=== PATIENT | female | born 1955 | race Caucasian/White ===

== ENCOUNTER 2024-03-10 07:00 | Day surgery (SDC) | payer MEDICARE, OTHER ==
[~2024-03-10 07:00] MED LIST: Lactated Ringers 1,000 ML IV SCH; Morphine 8 MG, EPINEPHrine 0.3 MG, Cefuroxime 750 MG, Ketorolac 30 MG, Sodium Chloride ... PRN; Sodium Chloride 0.9% 10 ML Syringe FLUSH PRN; Sodium Chloride 0.9% 10 ML Syringe FLUSH SCH
[2024-03-10] MEDS: Lactated Ringers 1,000 ML IV SCH (07:10)
[2024-03-10] MEDS ORDERED: Propofol 200 MG/20 ML SDV ONE ×4 (07:56)
[2024-03-10] MEDS ORDERED: fentaNYL 100 MCG/2 ML SDV ONE ×2 (07:57→09:06)
[2024-03-10] MEDS ORDERED: Phenylephrine 1% 10 MG/ML SDV ONE (07:58)
[2024-03-10] MEDS ORDERED: Sodium Chloride 0.9% 100 ML ONE (07:58)
[2024-03-10 08:06] LABS: INR 0.99; PROTHROMBIN TIME 10.5 SECONDS (9.7-12.0)
[2024-03-10] MEDS ORDERED: ceFAZolin 2 GM Vial ONE (08:21)
[2024-03-10] MEDS ORDERED: Dexamethasone 4 MG/ML 5 ML MDV ONE (08:27)
[2024-03-10] MEDS ORDERED: Ondansetron 4 MG/2 ML SDV ONE (08:27)
[2024-03-10] MEDS ORDERED: Ropivacaine 0.5% 5 MG/ML 30 ML SDV ONE (08:38)
[2024-03-10] MEDS ORDERED: Sodium Chloride 0.9% 10 ML Syringe FLUSH SCH (09:00)
[2024-03-10] MEDS: Morphine 8 MG, EPINEPHrine 0.3 MG, Cefuroxime 750 MG, Ketorolac 30 MG, Sodium Chloride ... PRN (09:26)
[2024-03-10] MEDS: Tranexamic Acid 1,000 MG/10 ML Vial ONE (09:30)
[2024-03-10] MEDS: Vancomycin 1 GM SDV ONE (09:30)
[2024-03-10] MEDS: HYDROmorphone 0.5 MG/0.5 ML Syringe IVPUSH PRN (10:08)
[2024-03-10] MEDS: fentaNYL 100 MCG/2 ML SDV IVPUSH PRN (10:15)
[2024-03-10] MEDS: Ondansetron 4 MG/2 ML SDV IVPUSH PRN (10:27)
[2024-03-10] MEDS ORDERED: oxyCODONE 5 MG Tab PO PRN (10:39)
[2024-03-10] MEDS: Haloperidol Lactate 5 MG/ML SDV IVPUSH ONE ×2 (11:29→13:59)
[2024-03-10] MEDS: Ondansetron 4 MG/2 ML SDV IVPUSH ONE (13:59)
== END 2024-03-10 15:55 | disposition home or self-care (01) ==
LOC: JD.SDS 07:00 → MERGE 08:30 → JD.SDS 15:55
PROVIDERS: ATTEND Orthopaedic Surgery
DX: M17.11 Unilateral primary osteoarthritis, right knee (principal); E78.5 Hyperlipidemia, unspecified; E06.3 Autoimmune thyroiditis; Z79.899 Other long term (current) drug therapy; Z88.5 Allergy status to narcotic agent; Z79.82 Long term (current) use of aspirin; Z86.718 Personal history of other venous thrombosis and embolism
CPT/HCPCS: 0055T; 27447; 36415; 64447; 73560; 85610; 97110; 97161; C1713; C1776; J0171; J0690; J0697; J1100; J1170; J1630; J1885; J2270; J2371; J2405; J2704; J2795; J3010; J3370; J3490; J7120; 01402